=== PATIENT | male | born 1955 | race African-American/Black ===

== ENCOUNTER 2018-08-05 22:44 | Emergency (ER) | payer OTHER ==
[~2018-08-05] VITALS: Ht 172.7 cm; Wt 72.6 kg
[~2018-08-05 22:44] MED LIST: AMOXICILLIN500 MG ORAL; ASPIRIN81 MG ORAL; COZAAR50 MG PO; HYDROCHLOROTHIA25 MG PO; IBUPROFEN600 MG ORAL; MECLIZINE HCL25 MG ORAL; NKM; RANITIDINE HCL150 MG ORAL; SIMVASTATIN20 MG ORAL; ZOFRAN ODT4 MG ORAL
[2018-08-05 23:09] VITALS: BP 148/79
[2018-08-05] MEDS ORDERED: Lidocaine 1% 10mg/ml/Epi 0.005mg/ml 30ml vial INJ ONE (23:45)
[2018-08-05 23:53] VITALS: BP 139/80
[2018-08-05 23:54] VITALS: BP 148/79
--- NOTE | 2018-08-05 23:55 | Emergency Room Report ---
History of Present Illness General Chief Complaint: General Complaint Present Illness [facility] This is 62-year-old male with no significant past medical history. He presents with a lump and swelling to the back of his been there for about a week. Slight tenderness. No fever chills but no drainage. Denies any fever chills. No vomiting. No diarrhea. No trauma. Allergies: Coded Allergies: No Known Allergies (Unverified , 10/31/12) Patient History Past Medical History: see triage record, old chart reviewed Past Surgical History: none Pertinent Family History: none Social History: Denies: smoking Immunizations: other Reviewed Nursing Documentation: PMH: Agreed; PSxH: Agreed Nursing Documentation-PMH Hx Hypertension: Yes Hx Cancer: No Hx Gastrointestinal Problems: No Hx Neurological Problems: Yes Hx Cerebrovascular Accident: Yes - 2013 X 3 Hx Dizziness: Yes Hx Headaches: Yes Review of Systems Eye: Denies: eye pain, blurred vision ENT: Denies: ear pain, nose congestion, throat swelling Respiratory: Denies: cough, shortness of breath Cardiovascular: Denies: chest pain, palpitations Gastrointestinal: Denies: abdominal pain, diarrhea, nausea, vomiting Musculoskeletal: Denies: back pain, joint pain Skin: Denies: rash Neurological: Denies: headache, numbness Endocrine: Denies: increased thirst, increased urine Hematologic/Lymphatic: Denies: easy bruising All Other Systems: negative except mentioned in HPI Physical Exam Vital Signs Date Time Temp Pulse Resp B/P (MAP) Pulse Ox O2 Delivery O2 Flow Rate FiO2 08/05/18 23:00 97.9 75 18 153/84 97 Room Air 97.9 vitals normal except for high blood pressure Sp02 EP Interpretation: reviewed, normal General Appearance: well appearing, no apparent distress, alert Head: normocephalic, atraumatic Eyes: bilateral eye PERRL, bilateral eye EOMI ENT: hearing grossly normal, normal pharynx Neck: full range of motion, supple, no meningismus Respiratory: chest non-tender, lungs clear, normal breath sounds Cardiovascular #1: regular rate, rhythm, no murmur Gastrointestinal: normal bowel sounds, non tender, no mass, no organomegaly, no bruit, non-distended Musculoskeletal: back normal, gait/station normal, normal range of motion, other - 4cm mass to rt lower back. no redness. no tenderness. Psychiatric: mood/affect normal Skin: warm/dry Procedures Laceration/Wound Repair Laceration/Wound Repair : Consent: Verbal Wound Location: back Wound Length (cm): 2 Wound Explored: clean Betadine Prep?: Yes Anesthesia: Lidocaine w/ Epi Volume Anesthetic (ccs): 3 Suture Size/Type: 3:0, other - vicryl Number of Sutures: 2 Patient Tolerated: Well Complications: None Medical Decision Making Diagnostic Impression: Primary Impression: Lipoma of back ER Course Patient with a mass to his lower back. This is a lipoma. It clean area and an exercise it with local 1% lidocaine with epinephrine. I made a 2 cm incision and dissected down to the area. It was just fatty tissue. No evidence of sebaceous cyst. No evidence of any infection. I placed two sutures Last Vital Signs Date Time Temp Pulse Resp B/P (MAP) Pulse Ox O2 Delivery O2 Flow Rate FiO2 08/05/18 23:09 97.8 78 18 148/79 96 Room Air 97.8 Status: improved Disposition: HOME, SELF-CARE Condition: Stable Additional Instructions: Follow-up your doctor in 7 days. Return if symptom worsen. Sutures will fall off within 2 weeks. If not, return here. AUDREY LO M.D. Aug 05, 2018 23:55
== END 2018-08-06 00:01 | disposition home or self-care (01) ==
LOC: EMR 23:15
DX: D17.1 Benign lipomatous neoplasm of skin and subcutaneous tissue of trunk (principal)
CPT/HCPCS: 96372; 99283; Z7502

== ENCOUNTER 2020-08-08 12:35 | Emergency (ER) | payer MEDICARE, OTHER ==
[~2020-08-08] VITALS: Ht 172.7 cm; Wt 68.0 kg
[2020-08-08 12:52] VITALS: BP 184/86
--- NOTE | 2020-08-08 13:15 | Emergency Room Report ---
History of Present Illness General Chief Complaint: Syncope Source: Patient Present Illness HPI 64-year-old male history of hypertension, smoking, strokes, presents with syncopal episode prior to arrival around 9 AM patient reports that he was sitting felt lightheaded and suddenly passed out no chest pain or shortness of breath no known aggravating relieving factors severity was severe lasting a few minutes that self resolved, patient currently feels fine but was worried about his symptoms no numbness no weakness patient presents for evaluation and treatment Allergies: Coded Allergies: No Known Allergies (Unverified , 10/31/12) COVID-19 Screening Contact w/high risk pt: No Experienced COVID-19 symptoms?: No COVID-19 Testing performed V[employer]ISH [employer]ER: No Patient History Past Medical History: see triage record Social History: Reports: smoking, alcohol use Reviewed Nursing Documentation: PMH: Agreed; PSxH: Agreed Nursing Documentation-PMH Past Medical History: No History, Except For Hx Hypertension: Yes Hx Cancer: No Hx Gastrointestinal Problems: No Hx Neurological Problems: Yes Hx Cerebrovascular Accident: Yes - 2013 X 3 Hx Dizziness: Yes Hx Headaches: Yes Review of Systems All Other Systems: negative except mentioned in HPI Physical Exam Vital Signs Date Time Temp Pulse Resp B/P (MAP) Pulse Ox O2 Delivery O2 Flow Rate FiO2 08/08/20 12:46 97.7 74 16 190/88 (122) 99 Room Air Sp02 EP Interpretation: reviewed, normal General Appearance: well appearing, no apparent distress, alert Head: normocephalic, atraumatic Eyes: bilateral eye PERRL, bilateral eye EOMI ENT: uvula midline, moist mucus membranes Neck: supple, thyroid normal, supple/symm/no masses Respiratory: lungs clear, no respiratory distress, no retraction, no accessory muscle use Cardiovascular #1: normal peripheral pulses, regular rate, rhythm, no edema, no gallop, no murmur Gastrointestinal: non tender, soft, no guarding, no rebound Musculoskeletal: normal inspection Neurologic: alert, oriented x3, cerebellar normal, other - Cranial nerves II through XII intact except for left facial droop V2 V3 distribution, additionally left pronator noted, strength intact bilaterally no dysarthria Psychiatric: mood/affect normal Skin: no rash, warm/dry Procedures Critical Care Time Critical Care Time Given the critical condition in which the patient arrived, the patient was immediately assessed by myself and the nurse, and cardiac monitoring initiated due to the potential for rapid decompensation of the patient's clinical condition. During the course of the patient's stay, I spent a considerable amount of time at the bedside performing serial re-evaluations of the patient's hemodynamic and clinical status because of the recognized potential threat to life or limb in this condition. I then had a chance to review not only all of the available current laboratory and radiographic studies obtained today, but I also reviewed old records available to me at the time. Additionally, any ancillary information available including behavior therapist records were reviewed. Sequential vital signs were obtained. Critical Care time of 33 minutes was performed exclusive of billable procedures. Medical Decision Making Diagnostic Impression: Primary Impression: Syncope Qualified Codes: R55 - Syncope and collapse Additional Impression: Stroke Qualified Codes: I63.9 - Cerebral infarction, unspecified ER Course 64-year-old male presents with left facial droop, syncopal episode last known well time most likely 9 AM Plan for transfer, aspirin 325 mg given to the patient emergently Spoke with Dr. Knox 1:38pm who will accept patient at [facility]. Will transfer patient for higher level of care further treatment and evaluation EKG Diagnostic Results EKG Time: 13:21 EP Interpretation: NSR, rate 62, QTc 432, no acute ST elevations, normal axis Rhythm Strip Diag. Results Rhythm Strip Time: 13:13 EP Interpretation: yes Rate: 69 Chest X-Ray Diagnostic Results Chest X-Ray Diagnostic Results : Chest X-Ray Ordered: Yes # of Views/Limited/Complete: 1 View Indication: Chest Pain EP Interpretation: Yes Interpretation: no consolidation, no effusion, no pneumothorax, no acute cardiopulmonary disease Impression: No acute disease Electronically Signed by: Brendon Henry MD Last Vital Signs Date Time Temp Pulse Resp B/P (MAP) Pulse Ox O2 Delivery O2 Flow Rate FiO2 08/08/20 12:52 97.8 78 16 184/86 99 Room Air Disposition: SHORT-TERM HOSP - [facility] Condition: Critical Brendon Henry MD Aug 08, 2020 13:15
--- NOTE | 2020-08-08 13:38 | Diagnostic Imaging Report ---
EXAM: CT CT Head no Contrast INDICATION: Reason For Exam: SYNCOPE. TECHNIQUE: Axial images of the brain were obtained with subsequent sagittal and coronal reformats. All CT scans at this facility are performed using dose modulation techniques as appropriate to a performed exam including the following: automated exposure control with adjustment of the mA and/or kV according to patient size. COMPARISON STUDY: 04/03/2015 RADIATION DOSE: CTDIvol: 53.4 mGy DLP: 1098.9 mGy-cm Dose information generated by the CT scanner is available in PACS. FINDINGS: The dominant abnormality is an apparent acute infarcts noted at the lateral margin of the right frontal parietal vertex. There is no evidence of hemorrhage at this time. Diffuse age-related volume loss and white matter microangiopathic changes also noted. Ventricles and cisterns are normal configuration. Small old lacunar type infarct noted in the left cerebellum. Brainstem posterior fossa otherwise unremarkable. The sellar region is normal. Sinuses, mastoid air cells and bony calvarium appear intact. IMPRESSION: An acute infarct noted at the right frontoparietal vertex. No hemorrhage at this time. No mass effect or shift. Old lacunar type infarct left cerebellum. Diffuse age-related senescent changes. Findings called to the ED physician 08/08/2020 at 1:30 PM
--- NOTE | 2020-08-08 13:50 | Diagnostic Imaging Report ---
Procedure: XRAY Chest 1v Reason for study: Syncope. Shortness of breath. Comparison films: 10/31/2012. FINDINGS: A single one view chest is obtained. Vascularity is normal. The lung diaz are clear bilaterally. Cardiac and mediastinal silhouette are within normal limits. CP angles are sharp. The bony thorax appear unremarkable. IMPRESSION: NO ACUTE CARDIOPULMONARY DISEASE.
[2020-08-08 13:52] LABS: ALBUMIN 3.7 G/DL (3.4-5.0); ANION GAP 13 mmol/L (5-15); BLOOD UREA NITROGEN 15 mg/dL (7-18); CALCIUM 8.7 MG/DL (8.5-10.1); CARBON DIOXIDE 25 MMOL/L (21-32); CHLORIDE 107 MMOL/L (98-107); CREATININE 1.1 MG/DL (0.55-1.30); POTASSIUM 3.7 MMOL/L (3.5-5.1); SODIUM 145 MMOL/L (136-145)
[2020-08-08 13:56] LABS: EOSINOPHILS % (AUTO) 1.6 % (0.0-3.0); HEMATOCRIT 44.5 % (42.0-52.0); HEMOGLOBIN 14.9 G/DL (14.2-18.0); LYMPHOCYTES % (AUTO) 34.5 % (20.0-45.0); MEAN CORPUSCULAR VOLUME 94 FL (80-99); MONOCYTES % (AUTO) 11.3 % (1.0-10.0); NEUTROPHILS % (AUTO) 49.6 % (45.0-75.0); PLATELET COUNT 160 K/UL (150-450); RED BLOOD COUNT 4.74 M/UL (4.70-6.10); RED CELL DISTRIBUTION WIDTH 12.9 % (11.6-14.8); WHITE BLOOD COUNT 4.3 K/UL (4.8-10.8)
[2020-08-08 14:07] LABS: ALANINE AMINOTRANSFERASE 22 U/L (12-78); ALKALINE PHOSPHATASE 86 U/L (46-116); ASPARTATE AMINO TRANSFERASE 16 U/L (15-37); BILIRUBIN,TOTAL 0.4 MG/DL (0.2-1.0)
[2020-08-08 15:01] VITALS: BP 145/64
[2020-08-08 15:06] VITALS: BP 145/64
== END 2020-08-08 15:06 | disposition short-term general hospital (02) ==
LOC: EMR 13:17 → CANBEDREQ 13:40 → EMR 15:06
DX: I63.9 Cerebral infarction, unspecified (principal); R55 Syncope and collapse; I10 Essential (primary) hypertension; Z86.73 Personal history of transient ischemic attack (TIA), and cerebral infarction without residual deficits
CPT/HCPCS: 36415; 70450; 71045; 80053; 84484; 85025; 93005; 99291; U0002